=== PATIENT | male | born 1975 | race Caucasian/White ===

== ENCOUNTER 2022-06-10 15:43 | Emergency (ER) | payer BC, OTHER ==
[~2022-06-10] VITALS: Ht 182.8 cm; Wt 127.0 kg
[~2022-06-10 15:43] MED LIST: CLOT15CR4 TP; FLUC100T PO; PRD20T PO; TRM50T PO
[2022-06-10] MEDS ORDERED: fentaNYL INJ 100 MCG/2 ML AMP IVP STA (15:54)
[2022-06-10] MEDS ORDERED: ceFAZolin INJECTION 2,000 MG in NS (IVPB) 50 ML IV ONE (16:00)
[2022-06-10] MEDS ORDERED: LIDOCAINE 1% INJ 10 ML VIAL INJ ONE ×2 (16:00→17:15)
--- NOTE | 2022-06-10 16:00 | ED Upper Extremity ---
General Stated Complaint: L RING FINGER LAC Source: patient Exam Limitations: no limitations History of Present Illness Date Seen by Provider: Jun 10, 2022 Time Seen by Provider: 15:57 Initial Comments Patient is a 47-year-old male who presents to the ED with left hand injury. Patient states he was using a circular saw when it kicked back resulting in lace ration through the palmar side of his left middle finger, ring finger and little finger. Patient reports distal numbness and tingling and pain. He states he is not able to flex his left ring finger. Patient is unsure as he up-to-date his tetanus. Has a history of egg allergies and believes he may have had a tetanus shot prior. He is allergic to aspirin and ibuprofen. States he has received lidocaine from previous injuries in the past. Allergies and Home Medications Allergies Coded Allergies: aspirin (Unverified Allergy, Unknown, 04/10/15) ciprofloxacin (Unverified Allergy, Unknown, 04/10/15) egg (Unverified Allergy, Unknown, 04/10/15) ibuprofen (Unverified Allergy, Unknown, 04/10/15) lidocaine (Unverified Allergy, Unknown, 04/10/15) nut - unspecified (Unverified Allergy, Unknown, 04/10/15) Patient Home Medication List Home Medication List Reviewed: Yes Cephalexin (Cephalexin) 500 Mg Tablet, 500 MG PO QID Prescribed by: JOHNATHAN TY on 06/10/221749 Clotrimazole/Betamethasone Dip (Lotrisone Cream) 15 Gm Cream..g., 15 GM TP UD Prescribed by: DIPTI LESTER on 04/10/152214 Fluconazole (Diflucan) 100 Mg Tablet, 100 MG PO DAILY Prescribed by: DIPTI LESTER on 04/10/152214 Hydrocodone/Acetaminophen (Hydrocodone-Acetamin 5-325 mg) 5 Mg-325 Mg Tablet, 1 TAB PO Q4H PRN for PAIN-MODERATE (5-7) Prescribed by: JOHNATHAN TY on 06/10/221749 Prednisone (Prednisone) 20 Mg Tab, 40 MG PO DAILY Prescribed by: DIPTI LESTER on 04/10/152214 Tramadol HCl (Tramadol HCl) 50 Mg Tablet, 50 MG PO Q4H PRN for PAIN Prescribed by: DIPTI LESTER on 04/10/15 8337 Review of Systems Constitutional: No chills, No diaphoresis, No malaise, No weakness EENTM: No ear pain, No blurred vision, No double vision, No mouth pain, No throat pain, No throat swelling Respiratory: No cough, No short of breath, No stridor, No wheezing Cardiovascular: No chest pain Gastrointestinal: No abdominal pain, No diarrhea, No nausea, No vomiting Genitourinary: No decreased output, No discharge Musculoskeletal: No back pain; joint pain, joint swelling Skin: change in color; No change in hair/nails All Other Systems Reviewed Negative Unless Noted: Yes Past Lylqpcy-Npyuoi-Ymrioq Hx Past Medical History Asthma Hypertension Reproductive Disorders: No Sexually Transmitted Disease: No HIV/AIDS: No Adverse Reaction/Blood Tranf: No Family Medical History No Pertinent Family Hx Physical Exam Vital Signs Vital Signs - First Documented 06/10/22 06/10/22 15:48 18:07 Temp 36.1 Pulse 73 Resp 20 B/P (MAP) 134/82 (99) O2 Delivery Room Air Capillary Refill : Height, Weight, BMI Height: 6'1" Weight: 275lbs. oz. 124.717808ax; BMI Method: General Appearance: WD/WN, no apparent distress HEENT: PERRL/EOMI, normal ENT inspection, TMs normal, pharynx normal Neck: non-tender, full range of motion, supple, normal inspection Cardiovascular: regular rate, rhythm, no edema, no gallop, no JVD Respiratory: chest non-tender, lungs clear, normal breath sounds, no respiratory distress, no accessory muscle use Gastrointestinal: normal bowel sounds, non tender, soft, no organomegaly Back: normal inspection, no CVA tenderness, no vertebral tenderness Shoulder: normal inspection, non-tender, no evidence of injury Elbow/Forearm: normal inspection, non-tender, no evidence of injury, normal ROM Wrist: Yes normal inspection, Yes non-tender, Yes no evidence of injury Hand: Left, bone tenderness (Unable to flex at the DIP joint of the left ring finger.), laceration (2 cm laceration through the palmar side of the left ring finger, middle finger, the finger.) Neurologic/Psychiatric: lime puller II-XII nml as tested, no motor/sensory deficits, alert, normal mood/affect, oriented x 3 Skin: normal color, warm/dry Procedures/Interventions Wound Location: Upper Extremities Other Wound Location left hand-left middle finger, Wound Length (cm): 2 Wound's Depth, Shape: superficial, irregular, sub Q Wound Explored: contaminated Irrigated w/ Saline (ccs): 100 Betadine Prep?: Yes Anesthesia: 1% Lidocaine Volume Anesthetic (ccs): 4 Wound Debrided: minimal Suture: Ethlion Suture Size: 4-0 Number of Sutures: 5 Layer Closure?: 1 Sterile Dressing Applied?: Yes Laceration #2-distal palmar ring finger 3 cm in length, wound depth shape irregular, subcutaneous, bone, tendon involvement. Contaminated wound. Extensive irrigation 500 mls. Betadine prep. Ethilon 4-0 11 sutures were placed. Laceration #3, distal left little finger 2cm in length, wound depth irregular, skin avulsion, subcutaneous tissue involvement. Contaminated wound. Extensive irrigation 100 mils, Betadine prep, Ethilon 4-0 4 sutures placed. Progress/Results/Core Measures Results/Orders Lab Results Laboratory Tests Test 06/10/22 15:57 Range/Units White Blood Count 7.2 4.3-11.0 10^3/uL Red Blood Count 5.13 4.30-5.52 10^6/uL Hemoglobin 16.0 13.3-17.7 g/dL Hematocrit 43 40-54 % Mean Corpuscular Volume 84 80-99 fL Mean Corpuscular Hemoglobin 31 25-34 pg Mean Corpuscular Hemoglobin Concent 37 H 32-36 g/dL Red Cell Distribution Width 11.8 10.0-14.5 % Platelet Count 138 130-400 10^3/uL Mean Platelet Volume 8.8 L 9.0-12.2 fL Immature Granulocyte % (Auto) 0 % Neutrophils (%) (Auto) 56 42-75 % Lymphocytes (%) (Auto) 33 12-44 % Monocytes (%) (Auto) 7 0-12 % Eosinophils (%) (Auto) 3 0-10 % Basophils (%) (Auto) 1 0-10 % Neutrophils # (Auto) 4.0 1.8-7.8 10^3/uL Lymphocytes # (Auto) 2.4 1.0-4.0 10^3/uL Monocytes # (Auto) 0.5 0.0-1.0 10^3/uL Eosinophils # (Auto) 0.2 0.0-0.3 10^3/uL Basophils # (Auto) 0.0 0.0-0.1 10^3/uL Immature Granulocyte # (Auto) 0.0 0.0-0.1 10^3/uL Sodium Level 139 135-145 MMOL/L Potassium Level 3.5 L 3.6-5.0 MMOL/L Chloride Level 103 98-107 MMOL/L Carbon Dioxide Level 24 21-32 MMOL/L Anion Gap 12 5-14 MMOL/L Blood Urea Nitrogen 20 H 7-18 MG/DL Creatinine 1.00 0.60-1.30 MG/DL Estimat Glomerular Filtration Rate 93 BUN/Creatinine Ratio 20 Glucose Level 133 H 70-105 MG/DL Calcium Level 9.1 8.5-10.1 MG/DL Corrected Calcium 8.9 8.5-10.1 MG/DL Total Bilirubin 0.5 0.1-1.0 MG/DL Aspartate Amino Transf (AST/SGOT) 27 5-34 U/L Alanine Aminotransferase (ALT/SGPT) 46 0-55 U/L Alkaline Phosphatase 76 40-136 U/L Total Protein 7.6 6.4-8.2 GM/DL Albumin 4.3 3.2-4.5 GM/DL My Orders Orders - THERESE WILLAMS Hand, Left, 3 Views (06/10/22 15:54) Cefazolin Injection (Ancef Injection) (06/10/22 16:00) Fentanyl Inj (Sublimaze Injection) (06/10/22 15:54) Cbc With Automated Diff (06/10/22 15:56) Comprehensive Metabolic Panel (06/10/22 15:56) Lidocaine 1% Inj 10 Ml (Xylocaine 1% Inj (06/10/22 16:00) Lidocaine 1% Inj 10 Ml (Xylocaine 1% Inj (06/10/22 17:15) Lidocaine 1% Inj 10 Ml (Xylocaine 1% Inj (06/10/22 17:18) Medications Given in ED Vital Signs/I&O 06/11/22 00:00 Intake Total 50 ml Balance 50 ml Departure Communication (PCP) Circular saw injury through the left middle finger, ring finger, little finger. Extensive irrigation here. X-ray shows a displaced fracture of the distal aspect of the fourth middle phalanx. Soft tissue injury noted. Soft injury injury noted at the distal aspect of the third middle phalanx with underlying potential 2 mm foreign body. Sutures were placed to the left middle, ring and little finger on the palmar side. Procedure documented note. I was able to approximate some of the tissue. The left little finger significant skin avulsion was not able to approximate much of the tissue. Does not appear to be any tendon involvement of the third middle or little fingef Concerning for open fracture started on cefazolin 2 g here in the ED. CBC, CMP was ordered which was unremarkable. Patient has multiple allergies, 1 including egg. Refused tetanus shot secondary to egg allergy. He believes he has not had vaccine secondary to the egg allergy. States eggs cause anaphylaxis. Patient was given a dose of pain medication. Concerning for near distal finger amputation of the ring fingerof the left hand. Discussed patient with Dr. Spence hand surgeon at [facility]. Recommends stitching and to follow-up in the office in the morning. He does have appropriate skin color tone to his digits distally. Will discharge with Keflex prophylactic and pain medication. Provided number to Dr. Spence office and discharge instructions Impression Primary Impression: Finger laceration Disposition: HOME, SELF-CARE Condition: Stable Departure-Patient Inst. Decision time for Depature: 17:48 Referrals: NO,LOCAL PHYSICIAN (PCP/Family) Primary Care Physician Patient Instructions: Laceration Repair With Stitches (DC) Add. Discharge Instructions: Recommend following up with Dr. Spence hand surgeon at [facility] in the morning. Call [phone] Scripts Hydrocodone/Acetaminophen (Hydrocodone-Acetamin 5-325 mg) 5 Mg-325 Mg Tablet 1 TAB PO Q4H PRN for PAIN-MODERATE (5-7), #10 TAB Prov: THERESE WILLAMS 06/10/22 Cephalexin (Cephalexin) 500 Mg Tablet 500 MG PO QID for 7 Days, #28 TAB Prov: THERESE WILLAMS 06/10/22 THERESE WILLAMS Jun 10, 2022 16:00
[2022-06-10 16:06] LABS: BASOPHILS % (AUTO) 1 % (0-10); EOSINOPHILS # (AUTO) 0.2 10^3/uL (0.0-0.3); EOSINOPHILS % (AUTO) 3 % (0-10); HEMATOCRIT 43 % (40-54); LYMPHOCYTES # (AUTO) 2.4 10^3/uL (1.0-4.0); LYMPHOCYTES % (AUTO) 33 % (12-44); MEAN CORPUSCULAR HEMOGLOBIN 31 pg (25-34); MEAN CORPUSCULAR HGB CONC 37 g/dL (32-36); MEAN CORPUSCULAR VOLUME 84 fL (80-99); MEAN PLATELET VOLUME 8.8 fL (9.0-12.2); MONOCYTES # (AUTO) 0.5 10^3/uL (0.0-1.0); MONOCYTES % (AUTO) 7 % (0-12); NEUTROPHILS % (AUTO) 56 % (42-75); PLATELET COUNT 138 10^3/uL (130-400); WHITE BLOOD COUNT 7.2 10^3/uL (4.3-11.0)
[2022-06-10 16:26] LABS: ALBUMIN 4.3 GM/DL (3.2-4.5); POTASSIUM 3.5 MMOL/L (3.6-5.0)
[2022-06-10 16:27] LABS: CALCIUM 9.1 MG/DL (8.5-10.1)
[2022-06-10 16:29] LABS: TOTAL PROTEIN 7.6 GM/DL (6.4-8.2)
[2022-06-10 16:30] LABS: BILIRUBIN,TOTAL 0.5 MG/DL (0.1-1.0)
--- NOTE | 2022-06-10 16:31 | Diagnostic Imaging Report ---
EXAMINATION: Left hand radiographs, 3 views. COMPARISON: None. HISTORY: 47-year-old male, injury of the left hand with saw. FINDINGS: There is a displaced fracture involving the distal aspect of the third middle phalanx with associated soft tissue injury. There is no identified bone fragment the size of the fracture defect. There is a punctate fracture fragment noted. There also appears to be a soft tissue defect of the volar aspect of the third digit at the level of the distal aspect of the third middle phalanx. In the volar soft tissues near this site, there is a 2 mm possible foreign body. There is no identified acute fracture at the level of the third digit. IMPRESSION: 1. Displaced fracture of the distal aspect of the third middle phalanx without a visible fracture fragment present correlating with the size of the fracture defect. There is an associated soft tissue injury. 2. Soft tissue injury of the volar soft tissues at the level of the distal aspect of the third middle phalanx with underlying potential 2 mm foreign body. Dictated by: Dictated on workstation # [id number]
[2022-06-10] MEDS ORDERED: LIDOCAINE 1% INJ 10 ML VIAL ONE (17:18)
[2022-06-10] MEDS ORDERED: CEPH500T PO (17:50)
[2022-06-10] MEDS ORDERED: ACHD5005 PO (17:50)
[2022-06-10 18:07] VITALS: BP 126/83
== END 2022-06-10 18:06 | disposition home or self-care (01) ==
LOC: EDUNIT# 15:43 → ER 15:44
DX: S62.625A Displaced fracture of middle phalanx of left ring finger, initial encounter for closed fracture (principal); S61.213A Laceration without foreign body of left middle finger without damage to nail, initial encounter; S61.217A Laceration without foreign body of left little finger without damage to nail, initial encounter; Z88.6 Allergy status to analgesic agent; Z88.1 Allergy status to other antibiotic agents; W27.0XXA Contact with workbench tool, initial encounter
CPT/HCPCS: 13152; 36415; 64450; 73130; 80053; 85025